=== PATIENT | female | born 1985 | race Caucasian/White ===

== ENCOUNTER → 2018-07-29 | Outpatient (CLI) | payer OTHER ==
[~2018-07-29] MED LIST: ESOM40CA PO
[2018-07-29 14:11] LABS: BASOPHILS # (AUTO) 0.05 x10^3/uL (0-0.1); BASOPHILS % (AUTO) 1 % (0-1); EOSINOPHILS # (AUTO) 0.25 x10^3/uL (0-0.4); EOSINOPHILS % (AUTO) 4 % (1-7); LYMPHOCYTES # (AUTO) 1.89 x10^3/uL (1-3.4); LYMPHOCYTES % (AUTO) 27 % (22-44); MD NO; MEAN CORPUSCULAR HEMOGLOBIN 31.2 pg (27.0-34.8); MEAN CORPUSCULAR HGB CONC 34.4 g/dL (32.4-35.8); MEAN CORPUSCULAR VOLUME 90.6 fL (80-100); MEAN PLATELET VOLUME 8.4 fL (7.4-10.4); MONOCYTES # (AUTO) 0.45 x10^3/uL (0.2-0.8); MONOCYTES % (AUTO) 6 % (2-9); NEUTROPHILS # (AUTO) 4.48 x10^3/uL (1.8-6.8); NEUTROPHILS % (AUTO) 63 % (42-75); PLATELET COUNT 309 x10^3/uL (130-400); RED BLOOD COUNT 4.54 x10^6/uL (3.82-5.3); RED CELL DISTRIBUTION WIDTH 12.3 % (9.6-15.2)
== END | disposition home or self-care (01) ==
LOC: STAR 08:00 → MERGE 13:30
PROVIDERS: ATTEND Obstetrics & Gynecology Female Pelvic Medicine and Reconstructive Surgery
DX: Z01.818 Encounter for other preprocedural examination (principal); N93.9 Abnormal uterine and vaginal bleeding, unspecified; N94.6 Dysmenorrhea, unspecified; R10.2 Pelvic and perineal pain; Z88.1 Allergy status to other antibiotic agents
CPT/HCPCS: 36415; 84703; 85025

== ENCOUNTER 2018-08-09 08:56 | Day surgery (SDC) | payer OTHER ==
[~2018-08-09] VITALS: Ht 162.6 cm; Wt 113.0 kg
[~2018-08-09 08:56] MED LIST changes: +BUPIVACAINE/PF 0.25% ONE; +EPINEPHRINE 1 MG/ML, 1ML ONE
[2018-08-09] MEDS ORDERED: ACETAMINOPHEN 500 MG TABLET PO ONE ×2 (09:00→09:30)
[2018-08-09] MEDS ORDERED: DIAZEPAM 5 MG TABLET PO ONE (09:00)
[2018-08-09] MEDS ORDERED: SCOPOLAMINE PATCH, 1.5MG PATCH.TD72 TD ONE ×2 (09:00→09:30)
[2018-08-09] MEDS ORDERED: LACTATED RINGERS 1,000 ML IV SCH ×2 (09:07→12:59)
[2018-08-09 09:27] VITALS: BP 152/99
[2018-08-09] MEDS ORDERED: GABAPENTIN 300 MG CAPSULE PO ONE (09:30)
[2018-08-09] MEDS ORDERED: FENTANYL PF 250 MCG/5ML ONE (10:09)
[2018-08-09] MEDS ORDERED: MIDAZOLAM 1 MG/ML, 2ML ONE (10:09)
[2018-08-09] MEDS ORDERED: KETOROLAC 30 MG/1 ML ONE (10:56)
[2018-08-09] MEDS ORDERED: DEXAMETHASONE 4 MG/ML, 1ML ONE (10:56)
[2018-08-09] MEDS ORDERED: INDIGO CARMINE 0.8%, 5ML ONE (10:56)
[2018-08-09] MEDS ORDERED: BUPIVACAINE/PF-EPI 0.25% 1:200K INFIL ONE (11:09)
[2018-08-09] MEDS ORDERED: THROMBIN 20,000 UNIT VIAL TP ONE (11:21)
[2018-08-09] MEDS ORDERED: hydrALAzine 20 MG/ML, 1ML IV PRN (11:30)
[2018-08-09] MEDS ORDERED: FENTANYL PF 100 MCG/2ML IV PRN (11:30)
[2018-08-09] MEDS ORDERED: HYDROmorphone 2 MG/ML, 1ML IVPush PRN (11:30)
[2018-08-09] MEDS ORDERED: LABETALOL 5MG/ML, 20ML IV PRN (11:30)
[2018-08-09] MEDS ORDERED: METOPROLOL 1 MG/ML, 5ML IV PRN (11:30)
[2018-08-09] MEDS ORDERED: PROCHLORPERAZINE 5 MG/ML, 2ML IV PRN (11:30)
[2018-08-09] MEDS ORDERED: OXYcodone 5 MG/5 ML ORAL.SOL UDC PO PRN ×3 (11:30→13:30)
[2018-08-09] MEDS ORDERED: HALOPERIDOL 5 MG/ML IV PRN ×2 (11:30)
[2018-08-09] MEDS ORDERED: PROMETHAZINE 25 MG/ML, 1ML IV PRN (11:30)
[2018-08-09] MEDS ORDERED: ALBUTEROL SULFATE 2.5 MG/3 ML NPPB PRN (11:30)
[2018-08-09] MEDS ORDERED: MEPERIDINE/PF 25MG/0.5ML IVPush PRN (11:30)
[2018-08-09] MEDS ORDERED: CEFAZOLIN 1,000 MG ONE (12:14)
[2018-08-09] MEDS ORDERED: GLYCOPYRROLATE 0.2MG/1ML, 5ML ONE (12:14)
[2018-08-09] MEDS ORDERED: SUCCINYLCHOLINE 20 MG/ML, 10ML ONE (12:14)
[2018-08-09] MEDS ORDERED: PROPOFOL 10 MG/ML, 20ML ONE (12:14)
[2018-08-09] MEDS ORDERED: NEOSTIGMINE 1 MG/ML, 10ML ONE (12:14)
[2018-08-09] MEDS ORDERED: ROCURONIUM 10MG/ML,5ML ONE (12:14)
[2018-08-09] MEDS ORDERED: ONDANSETRON 2MG/ML, 2ML ONE (12:14)
[2018-08-09] MEDS ORDERED: OXYcodone/APAP 5/325MG TABLET PO PRN ×2 (13:00→13:30)
[2018-08-09] MEDS ORDERED: PROMETHAZINE 12.5 MG SUPP PR ONE ×2 (13:00→13:30)
[2018-08-09] MEDS ORDERED: IBUPROFEN 600 MG TABLET PO PRN ×2 (13:00→13:30)
[2018-08-09] MEDS ORDERED: MEPERIDINE/PF 25MG/ML,1ML ONE ×2 (13:01→14:52)
[2018-08-09] MEDS ORDERED: OXYcodone 5 MG/5 ML ORAL.SOL UDC ONE (13:02)
[2018-08-09] MEDS ORDERED: FENTANYL PF 100 MCG/2ML ONE (13:38)
[2018-08-09] MEDS ORDERED: PROMETHAZINE 25 MG SUPP PR PRN (15:00)
[2018-08-09] MEDS ORDERED: MEPERIDINE/PF 50 MG/ML IM PRN (15:00)
== END 2018-08-09 17:15 | disposition home or self-care (01) ==
LOC: OUT 08:56 → MERGE 10:30 → OUT 17:15
PROVIDERS: ATTEND Obstetrics & Gynecology Female Pelvic Medicine and Reconstructive Surgery
DX: N93.9 Abnormal uterine and vaginal bleeding, unspecified (principal); N94.6 Dysmenorrhea, unspecified; E78.5 Hyperlipidemia, unspecified; K21.9 Gastro-esophageal reflux disease without esophagitis; J45.909 Unspecified asthma, uncomplicated; Z87.442 Personal history of urinary calculi; Z90.49 Acquired absence of other specified parts of digestive tract; Z98.890 Other specified postprocedural states; Z98.51 Tubal ligation status; Z88.8 Allergy status to other drugs, medicaments and biological substances
CPT/HCPCS: 58571; 88307; J0330; J0690; J1100; J1885; J2175; J2250; J2405; J2704; J2710; J3010; J3490; J7120; J0171

== ENCOUNTER 2018-08-16 01:48 | Emergency (ER) | payer OTHER ==
[~2018-08-16] VITALS: Ht 162.6 cm; Wt 114.3 kg
[~2018-08-16 01:48] MED LIST changes: -BUPIVACAINE/PF 0.25% ONE; -EPINEPHRINE 1 MG/ML, 1ML ONE
--- NOTE | 2018-08-16 02:05 | NUR ---
PT C/O SYNCOPE THIS PMx2 HOURS AGO W/ +HEAD TRAUMA INTO A GLASS PANEL. STATES R EYE PAIN SINCE THEN AND AFRAID OF GLASS IN EYE. NO VISUAL CHANGES. PT AMB W/ STEADY GAIT TO ROOM. NEURO FULL INTACT IN ROOM. PT DENIES OF VAGINAL D/C OR BLEEDING. DENIES OF INCREASING SWELLING OR TENDERNESS IN ABD. 3 SURGICAL SITES IN ABD PRESENT WELL APPROXIMATED AND IN MULTIPLE STAGES OF HEALING. ALL MONITORING APPLIED. CALL LIGHT WTIHIN REACH. FAMILY AT BEDSIDE. PA AT BEDSIDE FOR ASSESSMENT.
[2018-08-16] MEDS ORDERED: PROPARACAINE OPHTH 0.5%, 15ML EACHEYE STA (02:12)
[2018-08-16] MEDS ORDERED: PROPARACAINE OPHTH 0.5%, 15ML ONE (02:24)
[2018-08-16] MEDS ORDERED: FLUORESCEIN OPHTHALMIC 1 MG STRIP ONE (02:32)
[2018-08-16 02:39] LABS: BASOPHILS # (AUTO) 0.06 x10^3/uL (0-0.1); BASOPHILS % (AUTO) 1 % (0-1); EOSINOPHILS # (AUTO) 0.86 x10^3/uL (0-0.4); EOSINOPHILS % (AUTO) 8 % (1-7); LYMPHOCYTES # (AUTO) 2.06 x10^3/uL (1-3.4); LYMPHOCYTES % (AUTO) 19 % (22-44); MD NO; MEAN CORPUSCULAR HEMOGLOBIN 30.1 pg (27.0-34.8); MEAN CORPUSCULAR HGB CONC 33.4 g/dL (32.4-35.8); MEAN CORPUSCULAR VOLUME 90.2 fL (80-100); MEAN PLATELET VOLUME 7.9 fL (7.4-10.4); MONOCYTES # (AUTO) 0.71 x10^3/uL (0.2-0.8); MONOCYTES % (AUTO) 6 % (2-9); NEUTROPHILS % (AUTO) 67 % (42-75); PLATELET COUNT 365 x10^3/uL (130-400); RED CELL DISTRIBUTION WIDTH 11.9 % (9.6-15.2)
[2018-08-16 02:44] LABS: INTERNATIONAL NORMALIZED RATIO 0.91 (0.93-1.1); PROTHROMBIN TIME 9.6 Seconds (9.6-11.5)
[2018-08-16 02:46] LABS: ALBUMIN 3.6 g/dL (3.4-5.0); ANION GAP 4 mmol/L (5-15); CALCIUM 8.9 mg/dL (8.5-10.1); CHLORIDE 108 mmol/L (98-107)
[2018-08-16 02:51] LABS: ALANINE AMINOTRANSFERASE 37 U/L (12-78); ALKALINE PHOSPHATASE 83 U/L (45-117); BILIRUBIN,TOTAL 0.4 mg/dL (0.2-1.0); CREATININE 0.87 mg/dL (0.55-1.02); TOTAL PROTEIN 7.9 g/dL (6.4-8.2); TROPONIN I < 0.015 ng/mL (0.000-0.045)
[2018-08-16] MEDS ORDERED: FLUORESCEIN OPHTHALMIC 1 MG STRIP RIGHTEYE ONE (03:00)
--- NOTE | 2018-08-16 03:21 | NUR ---
PT IN CT AT THIS TIME.
[2018-08-16] MEDS ORDERED: OMNIPAQUE 350 MG/ML, 100ML BOTTLE ONE (03:31)
[2018-08-16] MEDS ORDERED: ACETAMINOPHEN 325 MG TABLET ONE ×2 (03:45→03:48)
[2018-08-16 03:51] VITALS: BP 130/83
[2018-08-16] MEDS ORDERED: ACETAMINOPHEN 325 MG TABLET PO ONE (04:00)
== END 2018-08-16 03:59 | disposition home or self-care (01) ==
LOC: ED 03:40
DX: S00.01XA Abrasion of scalp, initial encounter (principal); S09.8XXA Other specified injuries of head, initial encounter; R55 Syncope and collapse; W19.XXXA Unspecified fall, initial encounter; Y93.01 Activity, walking, marching and hiking; Y92.89 Other specified places as the place of occurrence of the external cause; Y99.8 Other external cause status
CPT/HCPCS: 36415; 70450; 71275; 80053; 84484; 85025; 85610; 85730; 93005; 99284; Q9967